=== PATIENT | male | born 1970 | race Caucasian/White ===

== ENCOUNTER 2023-05-02 12:47 | Emergency (ER) | payer OTHER ==
[~2023-05-02] VITALS: Ht 185.4 cm; Wt 110.2 kg
--- NOTE | 2023-05-02 13:03 | NUR ---
LEFT LOWER ABDOMINAL PAIN STARTED 1 HR AGO . DENIES NAUSEA AND VOMITING . VITAL ARE WITHIN NORMAL LIMITS. AWAITING MD MURRIETA.
--- NOTE | 2023-05-02 13:25 | NUR ---
IV ESTABLISHED L AC 20G. LABS DRAWN AND SENT.
[2023-05-02 13:36] LABS: BASOPHILS % (AUTO) 0.5 % (0.0-2.0); HEMATOCRIT 38 % (39-51); LYMPHOCYTES # (AUTO) 2.5 K/uL (0.8-4.8); LYMPHOCYTES % (AUTO) 35.3 % (20.0-44.0); MEAN CORPUSCULAR HGB CONC 34 g/dl (31.0-36.0); MEAN CORPUSCULAR VOLUME 89 fL (80-96); MONOCYTES # (AUTO) 0.5 K/uL (0.1-1.30); MONOCYTES % (AUTO) 6.9 % (2.0-12.0); NEUTROPHILS # (AUTO) 3.9 K/uL (1.8-8.9); NEUTROPHILS % (AUTO) 56.3 % (43.0-81.0); PLATELET COUNT (AUTO) 206 K/uL (150-450); RED BLOOD CELL COUNT(AUTO) 4.29 MIL/uL (4.5-6.0)
[2023-05-02] MEDS ORDERED: KETOROLAC TROMETHAMINE INJ 30 MG/ML VIAL ONE ×2 (13:51→13:54)
[2023-05-02 13:58] LABS: CALCIUM, SERUM 9.7 mg/dL (8.5-10.1); CREATININE 0.7 mg/dL (0.6-1.3); POTASSIUM 4.9 mmol/L (3.5-5.1)
[2023-05-02] MEDS ORDERED: KETOROLAC TROMETHAMINE INJ 30 MG/ML VIAL IV ONE (14:00)
[2023-05-02 14:04] LABS: BILIRUBIN,DIRECT 0.1 mg/dL (0.0-0.2); BILIRUBIN,TOTAL 0.4 mg/dL (0.2-1.0); TOTAL PROTEIN, SERUM 7.6 g/dL (6.4-8.2)
[2023-05-02] MEDS ORDERED: TAMSULOSIN 0.4 MG CAP.SR.24H PO ONE (15:00)
[2023-05-02] MEDS ORDERED: TAMS-12 PO (15:02)
[2023-05-02] MEDS ORDERED: TAMSULOSIN 0.4 MG CAP.SR.24H ONE (15:06)
[2023-05-02 15:11] LABS: BILIRUBIN,URINE 1+ (NEGATIVE); COLOR,URINE YELLOW (YELLOW); LEUKOCYTE ESTERASE ,URINE NEGATIVE (NEGATIVE); NITRITE, URINE NEGATIVE (NEGATIVE); PROTEIN,URINE TRACE mg/dl (NEGATIVE); UGLUCOSE NEGATIVE (NEGATIVE)
[2023-05-02 15:18] VITALS: BP 114/76; TEMP 98; O2SAT 100
--- NOTE | 2023-05-02 15:18 | NUR ---
IV removed. Catheter intact and site benign. Pressure and 4x4 applied to site. No bleeding noted.Patient discharged to home in stable condition. Written and verbal after care instructions given. Patient verbalizes understanding of instruction.
[2023-05-02 15:23] LABS: BACTERIA,URINE None seen /HPF (None Seen); MUCUS,URINE Few /LPF (None Seen); RBC,URINE 51-80 /HPF (0-2); SQUAMOUS EPITHELIAL CELL,UR None Seen /HPF (None Seen); WBC,URINE 0-2 /HPF (0-3)
== END 2023-05-02 15:19 | disposition home or self-care (01) ==
LOC: ER 12:58
DX: N20.0 Calculus of kidney (principal); Z88.0 Allergy status to penicillin
CPT/HCPCS: 99285; 74176; 96374; 85025; 80048; 83690; 80076; 81001; 36415; J1885 ×2

== ENCOUNTER 2024-02-18 14:29 | Emergency (ER) | payer OTHER ==
[~2024-02-18] VITALS: Ht 185.4 cm; Wt 111.1 kg
[~2024-02-18 14:29] MED LIST: TAMS-12 PO
[2024-02-18 14:35] VITALS: TEMP 98
[2024-02-18 15:28] VITALS: BP 120/70; O2SAT 98
== END 2024-02-18 15:28 | disposition home or self-care (01) ==
LOC: ER 14:29
DX: M79.89 Other specified soft tissue disorders (principal); I10 Essential (primary) hypertension; E78.5 Hyperlipidemia, unspecified; Z79.899 Other long term (current) drug therapy; Z88.0 Allergy status to penicillin
CPT/HCPCS: 93971-TC